=== PATIENT | male | born 1940 | race Caucasian/White ===

== ENCOUNTER 2016-09-06 10:05 | Inpatient (IN) ==
[2016-09-06] MEDS ORDERED: Ipratropium/Albuterol Neb 3 ML IH ONE (10:08)
[2016-09-06] MEDS ORDERED: 0.9 % Sodium Chloride 1,000 ML IVC ONE (10:11)
[2016-09-06] MEDS ORDERED: methylPREDNISolone 125 MG/2 ML VIAL IVP ONE (10:11)
--- NOTE | 2016-09-06 10:14 | Emergency Department Note ---
Disposition Clinical Impression: COPD exacerbation Anemia Qualifiers: Anemia type: unspecified type Qualified Code(s): D64.9 - Anemia, unspecified Disposition: Admitted As Inpatient Condition: Fair Referrals: NO,PCP [Primary Care Provider] - Forms: ED Satisfaction Letter SOB HPI - General Chief Complaint: ED Shortness of Breath/Dyspnea Stated Complaint: CHITO N/V/D Time Seen by Provider: 09/06/16 10:08 Source: patient, family, EMS Mode of arrival: EMS Limitations: no limitations Nursing Notes Reviewed: Yes Vital Signs Reviewed: Yes - History of Present Illness 75-year-old gentleman history of hypertension, COPD stage IV returns for evaluation of generalized weakness, dyspnea, nausea vomiting and diarrhea. Patient states that the nausea vomiting diarrhea occurred yesterday in has since resolved today. Patient's concerns about hydration status. Denies any chest pain or fevers. No cough. Patient states that he recently finished a course of amoxicillin due to his mucus production and is breathing. Patient states that he has been doing any treatments at home. Also is on home oxygen with 2-3 L. Family at bedside states he has been increasingly weak and can only walk 2-3 steps. Also reports some mild abdominal discomfort. States he did have mild heart attacks in the past. Patient is on oral prednisone 5 mg at home. Patient surgical history includes a cholecystectomy as well as an appendectomy. - Related Data Allergies Allergy/AdvReac Type Severity Reaction Status Date / Time Sulfa (Sulfonamide Allergy Anaphylaxis Verified 09/06/16 10:07 Antibiotics) All systems ED: reviewed and negative except as stated. Constitutional: Reports: as per HPI. Denies: fever Eyes: Reports: as per HPI ENT ED: Reports: as per HPI Cardiovascular: Reports: as per HPI. Denies: chest pain Respiratory: Reports: as per HPI, dyspnea Gastrointestinal: Reports: as per HPI, abdominal pain, nausea, vomiting, diarrhea Genitourinary: Reports: as per HPI Musculoskeletal: Reports: as per HPI Integumentary: Reports: as per HPI Neurological: Reports: as per HPI Psychiatric: Reports: as per HPI Endocrine: Reports: as per HPI Hematological/Lymphatic: Reports: as per HPI Physical Exam - General Limitations: no limitations General appearance: alert, in no apparent distress - Head Head exam: atraumatic, normocephalic, normal inspection - Eye Eye exam: Present: normal appearance, PERRL, EOMI - ENT ENT exam: normal exam, normal oropharynx, mucous membranes dry - Neck Neck exam: Present: normal inspection, trachea midline - Chest Chest inspection: Present: normal inspection, symmetric chest wall rise - Respiratory Respiratory exam: Present: accessory muscle use, prolonged expiratory phase, other (Diffuse decreased breath sounds). Absent: respiratory distress - Cardiovascular Cardiovascular exam: Present: normal rhythm, tachycardia. Absent: systolic murmur - Abdominal Exam Abdominal exam: Present: soft, Non-Tender. Absent: tenderness, distention, guarding, rebound, rigidity - Extremities Exam Extremities exam: Present: normal inspection, full ROM. Absent: tenderness, pedal edema - Back Exam Back exam: Present: normal inspection, full ROM. Absent: tenderness - Neurological Exam Neurological exam: Present: alert, oriented X3 - Skin Skin exam: Present: warm, dry, intact, normal color Course Course Narrative: Patient seen and examined upon EMS arrival. Patient does appear tachypneic with accessory muscle use. Patient's on his home oxygen therapy. Patient appears to be in mild discomfort with respiratory work of breathing. Patient will get aerosols, steroids. Patient will also get lab work evaluating cardiac evaluation. - Reevaluation(s) Reevaluation #1: Patient seen and examined. Patient notes breathing has improved. States he does feel slightly better. Discuss plan of care with the patient's family at bedside. Time: 11:12 Reevaluation #2: Explained the patient's care to the family. All questions were answered. Family is agreeable to the plan of care. Time: 11:53 Vital Signs Temperature 99.7 F H 09/06/16 10:08 Pulse Rate 110 09/06/16 10:08 Respiratory Rate 18 09/06/16 10:08 Blood Pressure 112/89 09/06/16 10:08 O2 Sat by Pulse Oximetry 98 09/06/16 10:08 Temperature 99.7 F H 09/06/16 10:08 Pulse Rate 104 09/06/16 11:15 Respiratory Rate 18 09/06/16 11:15 Blood Pressure 121/64 09/06/16 11:15 O2 Sat by Pulse Oximetry 97 09/06/16 11:15 Oxygen Delivery Oxygen Delivery Nasal Cannula Shortness of Breath/Dyspnea - MDM Narrative Medical decision making narrative: 75-year-old male presents for evaluation of nausea and vomiting and diarrhea that started yesterday and has resulted day but increasing weakness and shortness of breath today. Patient does have a consistent history of stage IV COPD. Falls with pulmonology at [facility]. Patient's on oral steroids at home. Patient was recently on amoxicillin for change in mucus production over the past week. Patient did have tachypnea with accessory muscle use and retractions upon exam. Patient was treated with duo nebs as well as IV steroids. Patient's labwork reviewed show some leukocytosis likely secondary to chronic steroid use. Patient's chest x-rays consistent with findings of COPD with minimal left basal opacification related to atelectasis versus airspace disease. Patient has a mild elevation total bili but has had his gallbladder removed. Patient also had his appendix removed. Patient's abdominal exam is benign notes that his pain has improved. Patient does have chronic anemia. Concern of the patient was recently on antibiotics and respiratory status did not improve. Patient will be admitted for respiratory support, scheduled nebs, antibiotics. Patient is not meet sepsis or SIRS criteria, the leukocytosis is likely secondary to deep margination. Patient has a normal lactate. Patient family at bedside are agreeable to plan of care. - Lab Data Lab results reviewed: Yes I reviewed the patient's lab results. Result diagrams: 09/06/16 10:23 09/06/16 10:23 Lab Results 09/06/16 09/06/16 09/06/16 Range/Units 10:23 10:23 10:23 WBC 20.6 H (4.3-11.1) K/mcL RBC 3.99 L (4.19-5.50) M/mcL Hgb 12.7 L (12.9-16.9) g/dL Hct 37.7 (37.5-50.1) % MCV 94.5 (83.0-100.0) fL MCH 31.8 (28.0-33.3) pg MCHC 33.7 (31.6-35.5) g/dL RDW 14.6 H (11.5-14.5) % Plt Count 211 (140-400) K/mcL MPV 8.1 L (9.4-12.4) fL Immature Gran % 5.1 H (0-4) % Seg Neutrophils % 74.8 % Lymphocytes % 5.1 % Monocytes % 14.9 % Eosinophils % 0.0 % Basophils % 0.1 % Neutrophils # 15.4 H (1.6-8.9) K/mcL Lymphocytes # 1.1 (0.6-4.6) K/mcL Monocytes # 3.1 H (0.0-1.3) K/mcL Eosinophils # 0.0 (0.0-0.6) K/mcL Basophils # 0.0 (0.0-0.2) K/mcL Sodium 134 L (136-145) mEq/L Potassium 3.6 (3.5-4.5) mEq/L Chloride 103 (98-109) mEq/L Carbon Dioxide 20 (19-29) mEq/L BUN 35 H (8-26) mg/dL Creatinine 1.25 (0.72-1.25) mg/dL Est GFR ( Amer) > 60 (> 60) Est GFR (Non-Af Amer) 56 L (> 60) BUN/Creatinine Ratio 28 H (6-26) Glucose 134 H (70-99) mg/dL Calculated Osmolality 288 (280-300) Lactic Acid 1.8 (0.5-2.2) mmol/L Calcium 8.9 (8.6-10.8) mg/dL Total Bilirubin 1.6 H (0.2-1.2) mg/dL Direct Bilirubin 0.7 H (0.0-0.5) mg/dL Indirect Bilirubin 0.9 (0.0-1.2) mg/dL AST 21 (5-34) Units/L ALT 31 (0-55) Units/L Alkaline Phosphatase 55 (38-126) Units/L Troponin I (0-0.03) ng/mL B-Natriuretic Peptide (0-100) pg/mL Serum Total Protein 6.8 (6.0-8.3) g/dL Albumin 3.8 (3.5-5.0) g/dL Globulin 3.0 (2.4-3.5) g/dL Albumin/Globulin Ratio 1.3 (1.1-2.2) 09/06/16 09/06/16 Range/Units 10:23 10:23 WBC (4.3-11.1) K/mcL RBC (4.19-5.50) M/mcL Hgb (12.9-16.9) g/dL Hct (37.5-50.1) % MCV (83.0-100.0) fL MCH (28.0-33.3) pg MCHC (31.6-35.5) g/dL RDW (11.5-14.5) % Plt Count (140-400) K/mcL MPV (9.4-12.4) fL Immature Gran % (0-4) % Seg Neutrophils % % Lymphocytes % % Monocytes % % Eosinophils % % Basophils % % Neutrophils # (1.6-8.9) K/mcL Lymphocytes # (0.6-4.6) K/mcL Monocytes # (0.0-1.3) K/mcL Eosinophils # (0.0-0.6) K/mcL Basophils # (0.0-0.2) K/mcL Sodium (136-145) mEq/L Potassium (3.5-4.5) mEq/L Chloride (98-109) mEq/L Carbon Dioxide (19-29) mEq/L BUN (8-26) mg/dL Creatinine (0.72-1.25) mg/dL Est GFR ( Amer) (> 60) Est GFR (Non-Af Amer) (> 60) BUN/Creatinine Ratio (6-26) Glucose (70-99) mg/dL Calculated Osmolality (280-300) Lactic Acid (0.5-2.2) mmol/L Calcium (8.6-10.8) mg/dL Total Bilirubin (0.2-1.2) mg/dL Direct Bilirubin (0.0-0.5) mg/dL Indirect Bilirubin (0.0-1.2) mg/dL AST (5-34) Units/L ALT (0-55) Units/L Alkaline Phosphatase (38-126) Units/L Troponin I 0.02 (0-0.03) ng/mL B-Natriuretic Peptide 74 (0-100) pg/mL Serum Total Protein (6.0-8.3) g/dL Albumin (3.5-5.0) g/dL Globulin (2.4-3.5) g/dL Albumin/Globulin Ratio (1.1-2.2) - Radiology Data Radiology results reviewed: Yes I reviewed the patient's radiology results. Chest X-Ray 09/06/16 10:11 IMPRESSION: 1. There is marked emphysematous/bullous changes more prominent of the upper lungs bilaterally. 2. Prominence of the interstitial markings bilaterally, which may be related to COPD. 3. Minimal left basilar opacification, which may represent atelectasis versus airspace disease. D/ / Selvin Bermudez MD / Selvin Bermudez MD Interpreting Provider: Selvin Bermudez MD - EKG Data EKG attestation: Yes I reviewed and interpreted this EKG. EKG shows normal: Reports: sinus rhythm Rate: Reports: tachycardia Rhythm: Reports: NSR Whitman/QRS: Reports: normal Q waves: Reports: v1 When compared to previous EKG there are: no significant changes Interpretation: Reports: no acute changes S.B.AEduardo - Silvestre Situation: Demographics Background: Presenting Complaint Assessment: Vital Signs, Patient/Family Expectation Recommendation: Barrier(s) to disposition, Recommendation based on pending studies, treatments, or consults S.B.AEduardo Report Given to: Dr. Laura Rivers Repor Time: 11:38
--- NOTE | 2016-09-06 10:28 | Emergency Department Note ---
START Narrative - START START: I examined this patient and my medical decision-making was reviewed with the RIDING INSTRUCTOR/PA/Advanced Practice Nurse/Resident Physician. I agree with the documented findings, disposition and treatment plan as described except to the extent set forth below. ED attending note: Patient seen with emergency medicine resident Dr. Skinner. Please see a copy of his note for details of the H&P, evaluation, management and disposition of this patient. We independently had [id number] contact with the patient Briefly: 75-year-old male by EMS for shortness of breath nausea vomiting and diarrhea. Patient recently on amoxicillin for "mucus production. History of COPD and is on supplemental home O2 2-3 L/m via nasal cannula. Increased weakness with nausea vomiting and diarrhea patient has bilateral expiratory wheezes with intercostal retractions And hypoxic with slight tachycardia. Patient had a triple DuoNeb is getting IV medications of steroids chest x-ray EKG and other screening labs. Admission anticipated. Provided 45 minutes of critical care services for this patient. Disposition pending.
[2016-09-06 10:31] LABS: Basophils % 0.1 %; Hematocrit 37.7 % (37.5-50.1); Hemoglobin 12.7 g/dL (12.9-16.9); Immature Granulocytes % 5.1 % (0-4); Lymphocytes # 1.1 K/mcL (0.6-4.6); Lymphocytes % 5.1 %; Mean Corpuscular HGB Conc 33.7 g/dL (31.6-35.5); Mean Corpuscular Hemoglobin 31.8 pg (28.0-33.3); Mean Corpuscular Volume 94.5 fL (83.0-100.0); Mean Platelet Volume 8.1 fL (9.4-12.4); Monocytes # 3.1 K/mcL (0.0-1.3); Monocytes % 14.9 %; Neutrophils # 15.4 K/mcL (1.6-8.9); Platelet Count 211 K/mcL (140-400); Red Blood Count 3.99 M/mcL (4.19-5.50); Red Cell Distribution Width 14.6 % (11.5-14.5); Segmented Neutrophils % 74.8 %
[2016-09-06 10:44] LABS: Alanine Aminotransferase 31 Units/L (0-55); Albumin 3.8 g/dL (3.5-5.0); Alkaline Phosphatase 55 Units/L (38-126); Aspartate Amino Transferase 21 Units/L (5-34); BUN/Creatinine Ratio 28 (6-26); Bilirubin,Direct 0.7 mg/dL (0.0-0.5); Bilirubin,Indirect 0.9 mg/dL (0.0-1.2); Bilirubin,Total 1.6 mg/dL (0.2-1.2); Blood Urea Nitrogen 35 mg/dL (8-26); Calcium 8.9 mg/dL (8.6-10.8); Carbon Dioxide 20 mEq/L (19-29); Chloride 103 mEq/L (98-109); Glucose 134 mg/dL (70-99); Osmolality,Calculated 288 (280-300); Potassium 3.6 mEq/L (3.5-4.5); Sodium 134 mEq/L (136-145); Total Protein 6.8 g/dL (6.0-8.3); eGFR For African Americans > 60 (> 60); eGFR For Non-African Americans 56 (> 60)
[2016-09-06 10:45] LABS: Albumin/Globulin Ratio 1.3 (1.1-2.2)
[2016-09-06] MEDS ORDERED: levoFLOXacin 500 MG TABLET PO ONE (11:10)
--- NOTE | 2016-09-06 12:27 | Event Note ---
Date of Encounter: 09/06/16 Time of Encounter: 12:24 1. Acute COPD exacerbation secondary to possible early community-acquired pneumonia Chest x-ray shows a small left possible infiltrate in the lower lobe Continue Solu-Medrol, DuoNeb, oxygen therapy and Levaquin iv 2. Chronic respiratory failure 3. Remote history of tobacco use 4. Hypertension, stable may use hydralazine as needed 5.. CAD, continue aspirin 6. Leukocytosis likely due to chronic use of steroids and Commit acquired pneumonia Admit as inpatient, expected stimulant to maintenance. Full code. Time spent on this admission 40 minutes. High risk for respiratory failure H&P to be written by TERRY Longo
[2016-09-06] MEDS ORDERED: Naloxone 0.4 MG/ML INJ IVP PRN (12:53)
[2016-09-06] MEDS ORDERED: Ondansetron 4 MG/2 ML VIAL IVP PRN (12:53)
[2016-09-06] MEDS ORDERED: Nitroglycerin 0.4 MG TAB.SUBL SL PRN (13:02)
--- NOTE | 2016-09-06 13:23 | Internal Med History&Physical ---
<DonatofaithanthonyPhillip chavez - Last Filed: 09/06/16 14:17> Date of Encounter: 09/06/16 Time of Encounter: 12:30 Assessment and Plan (1) SIRS (systemic inflammatory response syndrome) Current visit: Yes Status: Acute Assess: Patient presents with extreme shortness of breath, nausea, vomiting, and diarrhea for the past 48 hours. Patient currently meets SIRS criteria based on his current WBC of 20.6 and HR of 104. Lactic acid is 1.8 on initial labs. Plan: Blood cultures ordered Urine cultures ordered Sputum cultures ordered Stool culture ordered for identification of possible C. diff based on patient's recurrent abx use Lactic acid repeats ordered Repeat H/H ordered Levaquin administered PO in ED. IV levaquin ordered 500 daily starting 09/07/16 IV fluids 100 ml/HR NS ordered Continuous cardiac telemetry ordered Supplemental O2 ordered Monitor patient, vital signs, and SpO2 (2) SOB (shortness of breath) Current visit: Yes Status: Acute Assess: Patient presents with extreme SOB for the past 24 hours. Reports weakness and dizziness based on decreased O2 with exertion. Plan: Supplemental O2 ordered SpO2 monitoring as well as vital signs Continue patient's medications for COPD Steroids administered in ED and will be continued Falls precautions and Up-with Assist ONLY status Bed rest with bathroom privileges (3) Leukocytosis Current visit: Yes Status: Acute Assess: Patient presents with acute leukocytosis, most likely realted to current infection and use of steroids. Plan: Cultures for blood, urine, sputum, and stool ordered Levaquin 500 mg PO administered in ED IV levaquin 500 mg daily ordered beginning 09/07/16 Follow-up labs ordered Qualifiers: Leukocytosis type: unspecified Qualified Code(s): D72.829 - Elevated white blood cell count, unspecified (4) COPD exacerbation Current visit: Yes Status: Acute Assess: Patient presents with COPD exacerbation. Reports weakness and dizziness based on decreased O2 with exertion. 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 Reports weakness and dizziness based on decreased O2 with exertion. Plan: Supplemental O2 ordered SpO2 monitoring as well as vital signs Continue patient's medications for COPD Steroids administered in ED and will be continued Falls precautions and Up-with Assist ONLY status Bed rest with bathroom privileges Monitor patient and vital signs Qualifiers: Respiratory failure complication: unspecified whether with hypoxia or hypercapnia Qualified Code(s): J96.10 - Chronic respiratory failure, unspecified whether with hypoxia or hypercapnia (6) Anemia Current visit: Yes Status: Acute Assess: Patient presents with acute anemia. Current lab values from first draw: RBCs - 3.99, Hgb - 12.7, Hct - 37.7. Plan: Repeat timed H/H ordered Falls precautions ordered due to SOB and generalized weakness Qualifiers: Anemia type: unspecified type Qualified Code(s): D64.9 - Anemia, unspecified (7) Hypertension Current visit: Yes Status: Chronic Assess: Patient presents with history of chronic hypertension. Plan: Continue patient's HTN medications Continue statin Monitor patient and vital signs Bed rest with bathroom privileges/Up with Assist ONLY Qualifiers: Hypertension type: essential hypertension Qualified Code(s): I10 - Essential (primary) hypertension (8) CAD (coronary artery disease) Current visit: Yes Status: Chronic Assess: Patieint presents with history of CAD. EKG dated today (09/06/16) shows sinus tachycardia, most likely related to patient's current infection and extreme SOB. Plan: Continuous cardiac telemetry ordered Supplemental O2 ordered Repeat EKG ordered Continue statin Continue HTN medication Monitor patient and vital signs Qualifiers: Coronary Disease-Associated Artery/Lesion type: unspecified vessel or lesion type [place] vs. transplanted heart: [place] heart Associated angina: angina presence unspecified Qualified Code(s): I25.10 - Atherosclerotic heart disease of [place] coronary artery without angina pectoris (9) DVT prophylaxis Current visit: Yes Status: Acute Assess: Patient to receive DVT prophylaxis due to current bed rest status and infection. Plan: Heparin 5,000 SQ Q12 ordered Internal Medicine - H&P: HPI Chief complaint: SOB/Dyspnea Admitted From: Emergency Dept Plans for Post Hospital Care: Home History of present illness: Mr. Ricardo is a 75 year old male presents from the ED with chief complain of extreme SOB with exertion, nausea, vomiting and diarrhea over the past 48 hours. Patient reports generalized weakness as well. Mr. Ricardo states he has mild discomfort and shows signs of accessory muscle use with breathing and moderate respiratory distress. Patient also appears dehydrated. Mr. Ricardo states he had chest pain 4 days ago and is experiencing transient mild chest pain upon examination. He states he is hypertensive but takes his BP at home which usually ranges from 120-130 over 70's. Patient is currently tachycardic most likely due to infection (WBCs = 20.6 and HR = 104). Patient states that he just finished Amoxicillin due to suspected bronchitis and also states that he has been put on Amoxicillin every month for similar symptoms. 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 Patient currently has cough with excess sputum production which exacerbates his SOB. Patient has history of hypertension, CAD, late-stage COPD (reports exposure to Agent orange), and chronic respiratory failure. Patient currently meets SIRS criteria based on WBCs and HR of 104 bpm. Blood, urine, and sputum cultures ordered. Stool culture ordered due to patient' s chronic use of antibiotics as well. Levaquin 500 PO given in ED with IV levaquin 500 mg daily to begin 09/07/16. Orders placed for continuous cardiac telemetry, continuous SpO2 monitoring, timed H/H based on current anemia, repeat lactic acid (1.8 on first lab draw), follow-up labs. Patient to be monitored closely. Past Med Surg Social Fam HX - Past Medical History Medical history: COPD, hypertension, myocardial infarction, syncope Psychiatric history: anxiety, depression, PTSD - Past Surgical History Surgical History: appendectomy (50 years ago), cholecystectomy (2013), other ( Collapsed right lung in 1979) - Social History Smoking Status: Former smoker Packs per day: 1/2 PPD - quit 25 years ago Smokeless Tobacco Status: No Alcohol use: none Drug use: none Occupational status: retired Current living situation: Home, With Family Activity Level: Uses cane/walker Recent Out of Country Travel Within the Last 8 Weeks: No Exposure or Possible Exposure to Illness During Travel: No - Family History Father Race: Family Member Ethnicity: Non- Living Status: Age at : 70 Cause of : Lung cancer Hx Family Cardiac Disorders: Yes (OR) Hx Family Cancer: Yes (Lung) Mother Race: Family Member Ethnicity: Non- Living Status: Age at : 81 Cause of : Complications from Cystic fibrosis Hx Family Cardiac Disorders: Yes (CHF) Hx Family Respiratory Disorders: Yes (CF) Brother Race: Family Member Ethnicity: Non- Living Status: Still Living Hx Family Endocrine Disorder: Yes (DM) Sister Race: Family Member Ethnicity: Non- Living Status: Age at : 80 Cause of : Lung cancer Hx Family Cancer: Yes (Lung) Internal Medicine - H&P: Meds Acetylcysteine 20% [Mucomyst] 600 mg PO BID 09/06/16 [History] Albuterol Neb [Proventil Neb] 2.5 mg IH Q4HR 09/06/16 [History] Albuterol Sulfate [Proair Hfa] 2 puff IH Q4H PRN 09/06/16 [History] Alendronate Sodium [Fosamax] 70 mg PO QWEEK 09/06/16 [History] Baclofen [Lioresal] 5 mg PO BID 09/06/16 [History] Carvedilol 3.125 mg PO BID 09/06/16 [History] Cholecalciferol (D-3) [Vitamin D] 2,000 unit PO DAILY 09/06/16 [History] Furosemide [Lasix] 10 mg PO DAILY 09/06/16 [History] Losartan Potassium [Cozaar] 100 mg PO DAILY 09/06/16 [History] Magnesium Oxide [Mag-Ox] 400 mg PO DAILY 09/06/16 [History] Mirtazapine [Remeron] 7.5 mg PO HS 09/06/16 [History] Mometasone Furoate [Asmanex] 220 mcg IH BID 09/06/16 [History] Nitroglycerin [Nitrostat] 0.4 mg SL AD PRN 09/06/16 [History] Olodaterol HCl [Striverdi Respimat] 2 puff IH DAILY 09/06/16 [History] Prazosin [Minipress] 1 mg PO HS 09/06/16 [History] Ranitidine HCl [Heartburn Relief] 150 mg PO BID 09/06/16 [History] Simvastatin [Zocor] 20 mg PO DAILY 09/06/16 [History] Venlafaxine HCl [Effexor Xr] 75 mg PO DAILY 09/06/16 [History] Allergies Sulfa (Sulfonamide Antibiotics) Allergy (Verified 09/06/16 10:07) Anaphylaxis All Systems PM: A 10-system review of systems was performed and is negative for pertinent findings except as documented above in the HPI. - Constitutional Constitutional: as per HPI, weakness - EENT Eyes: no change in vision, no discharge, no pain, no photophobia Ears: no ear discharge, no ear pain, no tinnitus Nose, mouth and throat: no dysphagia, no nasal discharge, no neck pain, no sore throat - Breasts Breasts: as per HPI - Cardiovascular Cardiovascular ROS IM: as per HPI, chest pain, dyspnea, no diaphoresis, no lightheadedness, no palpitations, no syncope - Respiratory Respiratory: as per HPI, cough, dyspnea, dyspnea on exertion, excessive phlegm production - Gastrointestinal Gastrointestinal: as per HPI, abdominal pain, diarrhea, nausea, vomiting, no hematemesis, no hematochezia, no melena - Genitourinary Genitourinary ROS male: as per HPI - Musculoskeletal Musculoskeletal ROS IM: no numbness, no tingling - Integumentary Integumentary IM: no rash, no unusual bruising - Neurological Neurological ROS: no confusion, no convulsions, no focal weakness, no numbness, no tingling, no tremor(s) - Psychiatric Psychiatric: as per HPI - Endocrine Endocrine IM: as per HPI - Hematologic/Lymphatic Hematologic/Lymphatic: no easy bruising - Allergic/Immunologic Allergic/Immunologic: as per HPI - Constitutional Vitals: Temp Pulse Resp BP Pulse Ox 99.7 F H 104 18 108/76 97 09/06/16 10:08 09/06/16 11:45 09/06/16 11:45 09/06/16 11:45 09/06/16 11:45 General appearance: Present: cooperative, mild distress, A&O X 3, pleasant, obese, answers questions appropriately - Head Head exam: Present: atraumatic, normocephalic - Eye Eye exam: Present: PERRL, conjuntiva pink, sclera anicteric Pupils: Present: PERRL - ENT ENT exam: Present: normal exam, normal external ear exam - Neck Neck exam general surgery: Present: supple, trachea midline. Absent: lymphadenopathy - Respiratory Respiratory exam: Present: accessory muscle use, CTAB, wheezes (Mild expiratory wheezes in lower lobes bilaterally). Absent: rales, rhonchi - Cardiovascular Cardiovascular exam: Present: RRR, +S1, +S2. Absent: diastolic murmur, gallop, rubs, systolic murmur - GI/Abdominal GI/Abdominal exam: Present: diminished bowel sounds, soft, tenderness - Rectal Rectal exam: Present: deferred - Additional comments: exam deferred. - Extremities Exam Extremities exam: Present: warm, radial pulses palpable and symetrical. Absent : calf tenderness, cyanotic, pedal edema - Back Exam Back exam: Present: normal inspection - Neurological Exam Neurological exam: Present: CN II-XII intact, oriented X3, no focal deficits. Absent: pronater drift, facial droop, speech deficit - Psychiatric Psychiatric exam: Present: anxious - Skin Skin exam: Present: dry, intact Internal Med - H&P Results - Labs CBC & Chem 7: 09/06/16 10:23 09/06/16 10:23 - EKG Data Rate: tachycardia - EKG Data Prior EKG available for review: yes When compared to previous EKG: there is no significant change Interpretation IM: other (Patient's tachycardia most likely due to current infection and extreme SOB) EKG comments: 09/06/16 13:36 EKG dated 08/06/03 shows sinus rhythm within normal limits. EKG dated 08/07/16 shows sinus tachycardia. Abnormal rhythm ECG. - Diagnostic Studies Chest x-ray Additional comments: 1-View CXR of chest dated 09/06/16 shows: The cardiac silhouette appears within normal limits for size. There is prominence of the interstitial markings bilaterally. There appears to be emphysematous/bullous changes of the upper lungs bilaterally. Minimal left basilar opacification is seen. No pleural effusion or pneumothorax. Overall Impression: There is marked emphysematous/bullous changes more prominent of the upper lungs bilaterally. Prominence of the interstitial markings bilaterally, which may be related to COPD. Minimal left basilar opacification, which may represent atelectasis versus airspace disease. <Ko Miranda H - Last Filed: 09/06/16 14:30> Date of Encounter: 09/06/16 Internal Medicine - H&P: HPI History of present illness: Mr. Ricardo is a 75 year old male All Systems PM: A 10-system review of systems was performed and is negative for pertinent findings except as documented above in the HPI. - Constitutional Vitals: Temp Pulse Resp BP Pulse Ox 98.5 F 108 17 103/63 96 05/28/17 13:26 09/06/16 13:26 09/06/16 13:26 09/06/16 13:26 09/06/16 13:26 Internal Med - H&P Results - Labs CBC & Chem 7: 09/06/16 10:23 09/06/16 10:23 - Attending Attestation 1. Acute COPD exacerbation secondary to possible early community-acquired pneumonia Chest x-ray shows a small left possible infiltrate in the lower lobe Continue Solu-Medrol, DuoNeb, oxygen therapy and Levaquin iv 2. Chronic respiratory failure 3. Remote history of tobacco use 4. Hypertension, stable may use hydralazine as needed 5.. CAD, continue aspirin 6. Leukocytosis likely due to chronic use of steroids and Commit acquired pneumonia Admit as inpatient, expected stimulant to maintenance. Full code. Time spent on this admission 40 minutes. High risk for respiratory failure I examined this patient and my medical decision-making was reviewed with the MAP CLERK/PA/Advanced Practice Nurse/Resident Physician. I agree with the documented findings, disposition and treatment plan as described except to the extent set forth below.
[2016-09-06] MEDS ORDERED: Ipratropium/Albuterol Neb 3 ML IH PRN (14:18)
[2016-09-06 15:10] LABS: Bilirubin,Urine Negative (Negative); Blood,Urine Trace (Negative); Clarity,Urine Cloudy (Clear); Color,Urine Yellow (Yellow); Glucose,Urine (UA) Normal (Normal); Ketones,Urine Negative (Negative); Leukocyte Esterase,Urine Negative (Negative); Nitrite,Urine Negative (Negative); PH,Urine 5.5 pH Units (5.0-8.0); Protein,Urine 30 mg/dL (Neg-Trace); Specific Gravity,Urine 1.021 (1.010-1.025); Urobilinogen,Urine Normal (Normal)
[2016-09-06 15:14] LABS: Bacteria,Urine None Seen per hpf (None-Few); Hyaline Casts,Urine None Seen per lpf (None-Few); Squamous Epithelial Cell,Urine Moderate per lpf (None-Few); WBC,Urine 0-3 per hpf (0-3)
[2016-09-06] MEDS ORDERED: Aspirin 325 MG TABLET PO ONE (15:41)
[2016-09-06] MEDS ORDERED: Levofloxacin 250 MG/50 ML 250 MG/50 ML BAG IVPB ONE (15:53)
[2016-09-06] MEDS ORDERED: Acetaminophen 650 MG RECTAL SUPP RC ONE (15:58)
[2016-09-06] MEDS: 0.9 % Sodium Chloride 1,000 ML IVC SCH (16:25)
[2016-09-06] MEDS: Cefepime HCl 1,000 MG in D5% in Water (Mini-Bag+) 100 ML IVPB SCH (16:26)
[2016-09-06] MEDS: MethylPREDNISolone 40 MG/ML VIAL IVP SCH (16:27)
[2016-09-06] MEDS: Albuterol 2.5 MG/3 ML NEBULIZER IH SCH ×2 (16:28→20:19)
[2016-09-06] MEDS: *HR* Heparin 5,000 UNIT/ML VIAL SQ SCH (16:47)
[2016-09-06] MEDS: Baclofen 10 MG TABLET PO SCH (19:54)
[2016-09-06] MEDS: Mirtazapine 15 MG TABLET PO SCH (19:54)
[2016-09-06] MEDS: Beclomethasone 80mcg MDI IH SCH (20:19)
[2016-09-06] MEDS: *HR* Acetylcysteine 20% 600 MG/3 ML ORAL SYRINGE PO SCH (20:47)
[2016-09-07] MEDS: Albuterol 2.5 MG/3 ML NEBULIZER IH SCH ×4 (00:21→11:16)
[2016-09-07 00:43] LABS: Mean Corpuscular HGB Conc 33.5 g/dL (31.6-35.5); Mean Corpuscular Hemoglobin 31.8 pg (28.0-33.3); Mean Corpuscular Volume 94.8 fL (83.0-100.0); Mean Platelet Volume 8.4 fL (9.4-12.4); Platelet Count 167 K/mcL (140-400); Red Blood Count 3.27 M/mcL (4.19-5.50); Red Cell Distribution Width 14.4 % (11.5-14.5)
[2016-09-07 00:50] LABS: INR 1.3; Prothrombin Time 14.2 Seconds (9.4-12.1)
[2016-09-07 00:52] LABS: Activated Partial Thrombo Time 22.7 Seconds (26.0-36.0)
[2016-09-07 00:54] LABS: Hemoglobin 10.4 g/dL (12.9-16.9)
[2016-09-07 00:58] LABS: BUN/Creatinine Ratio 24 (6-26); Blood Urea Nitrogen 28 mg/dL (8-26); Carbon Dioxide 20 mEq/L (19-29); Chloride 109 mEq/L (98-109); Glucose 178 mg/dL (70-99); Osmolality,Calculated 296 (280-300); Potassium 3.7 mEq/L (3.5-4.5); Sodium 138 mEq/L (136-145); eGFR For African Americans > 60 (> 60); eGFR For Non-African Americans > 60 (> 60)
[2016-09-07 00:59] LABS: Alanine Aminotransferase 27 Units/L (0-55); Albumin 3.2 g/dL (3.5-5.0); Albumin/Globulin Ratio 1.2 (1.1-2.2); Alkaline Phosphatase 43 Units/L (38-126); Aspartate Amino Transferase 18 Units/L (5-34); Bilirubin,Total 0.9 mg/dL (0.2-1.2); Calcium 7.9 mg/dL (8.6-10.8); Chol/HDL Ratio 2.1 (0-4.9); Cholesterol 101 mg/dL (< 200); Globulin 2.6 g/dL (2.4-3.5); HDL Cholesterol 47 mg/dL (40-59); LDL Cholesterol,Calculated 36 mg/dL (0-99); Magnesium 2.2 mg/dL (1.6-2.6); Total Protein 5.8 g/dL (6.0-8.3); Triglycerides 91 mg/dL (< 150)
[2016-09-07 01:19] LABS: Lymphocytes # 0.8 K/mcL (0.6-4.6); Monocytes # 0.4 K/mcL (0.0-1.3); Platelet Estimate Normal (Normal)
[2016-09-07] MEDS: MethylPREDNISolone 40 MG/ML VIAL IVP SCH ×4 (01:49→23:59)
[2016-09-07] MEDS: 0.9 % Sodium Chloride 1,000 ML IVC SCH ×3 (04:56→17:54)
[2016-09-07] MEDS: Cefepime HCl 1,000 MG in D5% in Water (Mini-Bag+) 100 ML IVPB SCH (04:56)
[2016-09-07] MEDS: *HR* Heparin 5,000 UNIT/ML VIAL SQ SCH ×2 (06:10→17:54)
[2016-09-07] MEDS ORDERED: (Alendronate Sodium [Fosamax] 70 MG) PO SCH (06:30)
[2016-09-07] MEDS: Beclomethasone 80mcg MDI IH SCH ×2 (07:46→20:02)
[2016-09-07] MEDS: Magnesium Oxide 400 MG TABLET PO SCH (07:51)
[2016-09-07] MEDS: Cholecalciferol (D-3) 1,000 UNIT TABLET PO SCH (07:51)
[2016-09-07] MEDS: Aspirin Enteric Coated 325 MG Tablet PO SCH (07:59)
[2016-09-07] MEDS: Baclofen 10 MG TABLET PO SCH ×2 (07:59→21:06)
[2016-09-07] MEDS: Famotidine 20 MG TABLET PO SCH (07:59)
[2016-09-07] MEDS: Venlafaxine XR (24 HR) 75 MG CAP.ER.24H PO SCH (08:00)
[2016-09-07] MEDS: (Olodaterol Hcl [Striverdi Respimat] 2 PUFF) IH SCH (08:00)
--- NOTE | 2016-09-07 11:35 | Internal Med Progress Note ---
Date of Encounter: 09/07/16 Time of Encounter: 11:33 - Assessment and plan (1) Gastroenteritis Current Visit: Yes Status: Acute Assessment and plan: possibly viral. Improving. Continue IV hydration, supportive care and diet as tolerated. (2) Dehydration Current Visit: Yes Status: Resolved Assessment and plan: improved leukocytosis and serum creatinine; continue IV hydration. (3) COPD exacerbation Current Visit: Yes Status: Acute Assessment and plan: improving. Continue IV steroids, scheduled bronchodilators and supplemental O2; does have home O2; (4) Anemia Current Visit: Yes Status: Chronic Qualifiers: Anemia type: unspecified type Qualified Code(s): D64.9 - Anemia, unspecified (5) Hypertension Current Visit: Yes Status: Chronic Qualifiers: Hypertension type: essential hypertension Qualified Code(s): I10 - Essential (primary) hypertension (6) CAD (coronary artery disease) Current Visit: Yes Status: Chronic Qualifiers: Coronary Disease-Associated Artery/Lesion type: [place] artery [place] vs. transplanted heart: [place] heart Associated angina: without angina Qualified Code(s): I25.10 - Atherosclerotic heart disease of [place] coronary artery without angina pectoris (7) Chronic respiratory failure Current Visit: Yes Status: Chronic Assessment and plan: due to COPD; Qualifiers: Respiratory failure complication: hypoxia Qualified Code(s): J96.11 - Chronic respiratory failure with hypoxia - Subjective Interval history: Improved fever, vomiting and diarrhea. Improving shortness of breath, no cough or chest pain; had fever yesterday evening 101.2; - Constitutional Vitals: Temp Pulse Resp BP Pulse Ox 97.8 F 89 18 105/68 94 09/07/16 11:04 09/07/16 11:04 09/07/16 11:17 09/07/16 11:04 09/07/16 11:17 General appearance: Present: A&O X 3, answers questions appropriately - Respiratory Respiratory exam: Present: decreased breath sounds (B/L decreased air entry). Absent: accessory muscle use, rales, rhonchi, wheezes - Cardiovascular Cardiovascular exam: Present: RRR, +S1, +S2. Absent: diastolic murmur, gallop, rubs, systolic murmur - GI/Abdominal GI/Abdominal exam: Present: normal bowel sounds, soft, no peritoneal signs. Absent: distended, tenderness - Extremities Exam Extremities exam: Present: full ROM, warm, radial pulses palpable and symetrical. Absent: calf tenderness, cyanotic, pedal edema - Neurological Exam Neurological exam: Present: CN II-XII intact, oriented X3, no focal deficits. Absent: pronater drift, facial droop, speech deficit - Skin Skin exam: Present: dry, intact Internal Medicine: Result - Labs CBC & Chem 7: 09/07/16 00:17 09/07/16 00:17 Labs: Short CBC 09/07/16 Range/Units 00:17 WBC 9.2 D (4.3-11.1) K/mcL Hgb 10.4 L D (12.9-16.9) g/dL Hct 31.0 L (37.5-50.1) % Plt Count 167 (140-400) K/mcL Neutrophils # 8.0 (1.6-8.9) K/mcL BMP 09/07/16 00:17 Sodium 138 Potassium 3.7 Chloride 109 Carbon Dioxide 20 BUN 28 H Creatinine 1.15 Glucose 178 H Calcium 7.9 L Cardiac Enzymes 09/06/16 09/06/16 09/07/16 Range/Units 15:53 19:41 00:17 Troponin I 0.03 0.02 0.02 (0-0.03) ng/mL Liver Function 09/07/16 Range/Units 00:17 Total Bilirubin 0.9 (0.2-1.2) mg/dL AST 18 (5-34) Units/L ALT 27 (0-55) Units/L Alkaline Phosphatase 43 (38-126) Units/L Albumin 3.2 L (3.5-5.0) g/dL Urine 09/06/16 Range/Units 14:12 Urine Color Yellow (Yellow) Urine Clarity Cloudy A (Clear) Urine pH 5.5 (5.0-8.0) pH Units Ur Specific [place] 1.021 (1.010-1.025) Urine Protein 30 H (Neg-Trace) mg/dL Urine Glucose (UA) Normal (Normal) mg/dL - ABG Interpretation ABG results: PT/INR, D-dimer PT 14.2 Seconds (9.4-12.1) H 09/07/16 00:17 Consult Discharge Plan - Plan Referrals: NO,PCP [Primary Care Provider] -
[2016-09-07] MEDS ORDERED: Levofloxacin 250 MG/50 ML 250 MG/50 ML BAG IVPB SCH (12:00)
[2016-09-07] MEDS: *HR* Acetylcysteine 20% 600 MG/3 ML ORAL SYRINGE PO SCH ×2 (13:33→21:08)
[2016-09-07] MEDS: Ipratropium/Albuterol Neb 3 ML IH SCH ×3 (15:53→20:02)
[2016-09-07] MEDS: Mirtazapine 15 MG TABLET PO SCH (21:07)
[2016-09-07] MEDS ORDERED: Temazepam 15 MG CAPSULE PO PRN (23:56)
[2016-09-08] MEDS: Ipratropium/Albuterol Neb 3 ML IH SCH ×5 (00:01→15:15)
[2016-09-08] MEDS: 0.9 % Sodium Chloride 1,000 ML IVC SCH (03:50)
[2016-09-08] MEDS: *HR* Heparin 5,000 UNIT/ML VIAL SQ SCH (06:39)
[2016-09-08] MEDS: Beclomethasone 80mcg MDI IH SCH (07:42)
[2016-09-08] MEDS: Magnesium Oxide 400 MG TABLET PO SCH (08:21)
[2016-09-08] MEDS: MethylPREDNISolone 40 MG/ML VIAL IVP SCH (08:21)
[2016-09-08] MEDS: Aspirin Enteric Coated 325 MG Tablet PO SCH (08:21)
[2016-09-08] MEDS: Famotidine 20 MG TABLET PO SCH (08:22)
[2016-09-08] MEDS: Cholecalciferol (D-3) 1,000 UNIT TABLET PO SCH (08:22)
[2016-09-08] MEDS: Baclofen 10 MG TABLET PO SCH (08:22)
[2016-09-08] MEDS: (Olodaterol Hcl [Striverdi Respimat] 2 PUFF) IH SCH (08:23)
[2016-09-08] MEDS: Venlafaxine XR (24 HR) 75 MG CAP.ER.24H PO SCH (08:23)
[2016-09-08 08:26] LABS: BUN/Creatinine Ratio 34 (6-26); Calcium 7.2 mg/dL (8.6-10.8); Carbon Dioxide 18 mEq/L (19-29); Chloride 115 mEq/L (98-109); Glucose 147 mg/dL (70-99); Osmolality,Calculated 302 (280-300); Sodium 140 mEq/L (136-145); eGFR For African Americans > 60 (> 60); eGFR For Non-African Americans 60 (> 60)
[2016-09-08 08:27] LABS: Blood Urea Nitrogen 40 mg/dL (8-26)
[2016-09-08] MEDS: *HR* Acetylcysteine 20% 600 MG/3 ML ORAL SYRINGE PO SCH (08:50)
[2016-09-08 10:58] VITALS: BP 113/69
--- NOTE | 2016-09-08 11:01 | Discharge Summary ---
Date of Encounter: 09/08/16 Time of Encounter: 10:56 - Discharge Diagnosis (1) Gastroenteritis Priority: Primary Status: Acute (2) Dehydration Priority: Primary Status: Resolved (3) COPD exacerbation Priority: Primary Status: Acute (4) Anemia Priority: Secondary Status: Chronic Qualifiers: Anemia type: unspecified type Qualified Code(s): D64.9 - Anemia, unspecified (5) Hypertension Priority: Secondary Status: Chronic Qualifiers: Hypertension type: essential hypertension Qualified Code(s): I10 - Essential (primary) hypertension (6) CAD (coronary artery disease) Priority: Secondary Status: Chronic Qualifiers: Coronary Disease-Associated Artery/Lesion type: [place] artery [place] vs. transplanted heart: [place] heart Associated angina: without angina Qualified Code(s): I25.10 - Atherosclerotic heart disease of [place] coronary artery without angina pectoris (7) Chronic respiratory failure Priority: Secondary Status: Chronic Qualifiers: Respiratory failure complication: hypoxia Qualified Code(s): J96.11 - Chronic respiratory failure with hypoxia - Discharge Medications Prescriptions: Levofloxacin [Levaquin] 750 mg PO Q48H #3 tablet predniSONE [PredniSONE] 60 mg PO DAILY 13 Days Home Medications: Acetylcysteine 20% 600 mg PO BID 09/06/16 [History] Albuterol Neb [Proventil Neb] 2.5 mg IH Q4HR 09/06/16 [History] Albuterol Sulfate [Proair Hfa] 2 puff IH Q4H PRN 09/06/16 [History] Alendronate Sodium [Fosamax] 70 mg PO QWEEK 09/06/16 [History] Baclofen [Lioresal] 5 mg PO BID 09/06/16 [History] Carvedilol 3.125 mg PO BID 09/06/16 [History] Cholecalciferol (D-3) [Vitamin D] 2,000 unit PO DAILY 09/06/16 [History] Furosemide [Lasix] 10 mg PO DAILY 09/06/16 [History] Losartan Potassium [Cozaar] 100 mg PO DAILY 09/06/16 [History] Magnesium Oxide [Mag-Ox] 400 mg PO DAILY 09/06/16 [History] Mirtazapine [Remeron] 7.5 mg PO HS 09/06/16 [History] Mometasone Furoate [Asmanex] 220 mcg IH BID 09/06/16 [History] Nitroglycerin [Nitrostat] 0.4 mg SL AD PRN 09/06/16 [History] Olodaterol HCl [Striverdi Respimat] 2 puff IH DAILY 09/06/16 [History] Prazosin [Minipress] 1 mg PO HS 09/06/16 [History] Ranitidine HCl [Heartburn Relief] 150 mg PO BID 09/06/16 [History] Simvastatin [Zocor] 20 mg PO DAILY 09/06/16 [History] Venlafaxine HCl [Effexor Xr] 75 mg PO DAILY 09/06/16 [History] Levofloxacin [Levaquin] 750 mg PO Q48H #3 tablet 09/08/16 [Rx] predniSONE [PredniSONE] 60 mg PO DAILY 13 Days 09/08/16 [Rx] Allergies/Adverse Reactions: Allergies Sulfa (Sulfonamide Antibiotics) Allergy (Verified 09/06/16 10:07) Anaphylaxis Procedures/tests Complete & Pending: Procedures Performed prior 72 hours Category Date Time Status ECG 12 lead ECG [ECG] Routine Y 09/06/16 14:22 Ordered EV limited echocardiogram Routine Y 09/07/16 16:30 Completed Date of admission: 09/06/16 12:53 Primary care physician: PCP NO Consults: 09/06/16 14:41 Consult to Respiratory Therapy [CONS] Routine Reason for Consult: Patient has late-stage COPD and extreme SOB with exertion. Call Completed: Yes Discharging clinician: Stephanie Burns Anticipated date of discharge: 09/08/16 - Patient Status Disposition: Home, Self-Care Condition: Fair Functional capacity at discharge: independent ambulation Overall status at discharge: patient is progressing back to baseline - Discharge Instructions Instructions: Prednisone (By mouth), Levofloxacin (By mouth) Follow Up With: [facility] [Non-Partnered Physician] - 09/15/16 1:30 pm - Diet and Activity Activity: resume usual activities as tolerated, wear oxygen at all times Diet: low fat, low cholesterol, low salt diet Hospital course: Mr. Ricardo is a 75 year old male with the above medical problems, who was initially admitted with persistent nausea, emesis and diarrhea. He was noted to be severely dehydrated with leukocytosis and mild renal dysfunction at admission. He was started on IV hydration and his symptoms gradually improved. He was also noted to have acute exacerbation of COPD and was started on IV steroids and antibiotics along with scheduled bronchodilators, inhaled steroids/ [place] and supplemental oxygen. His oxygen requirements gradually came down to his baseline and he is doing much better in general. However, patient continues to have decreased air entry bilaterally on auscultation and he is visibly short of breath after speaking long sentences. I have discussed this with patient and his at bedside, who reports that this is patient's baseline and he requests to be discharged home today. Physical and occupational therapy evaluations have been requested, recommend home health services. care services manager has been consulted and a referral for this has been completed. Patient is otherwise medically stable for discharge with oral antibiotics and steroids. He is advised to present to the emergency room in the event of worsening respiratory distress, chest pain, cough and he verbalized understanding. - Time Spent with Patient Total time spent providing and/or coordinating discharge services: Greater than 30 minutes (45 min) - Constitutional Vitals: Temp Pulse Resp BP Pulse Ox 97.9 F 103 22 124/76 90 09/08/16 06:49 09/08/16 06:49 09/08/16 07:43 09/08/16 06:49 09/08/16 07:43 General appearance: Present: A&O X 3, answers questions appropriately - Respiratory Respiratory exam: Present: decreased breath sounds (decreased air entry B/L), CTAB. Absent: accessory muscle use, rales, rhonchi, wheezes - Cardiovascular Cardiovascular exam: Present: RRR, +S1, +S2. Absent: diastolic murmur, gallop, rubs, systolic murmur
[2016-09-08] MEDS ORDERED: Levofloxacin 750 MG/150 ML 750 MG/150 ML BAG IVPB SCH (12:00)
--- NOTE | 2016-09-08 16:14 | Physician Discharge Referral ---
Home Health/Hosp Referral Info Transfer to: Home Health Attending Provider: Stephanie Burns Provider in Charge Post Discharge: PCP - Diagnosis (1) Gastroenteritis Priority: Primary Status: Acute (2) Dehydration Priority: Primary Status: Resolved (3) COPD exacerbation Priority: Primary Status: Acute (4) Anemia Priority: Secondary Status: Chronic (5) Hypertension Priority: Secondary Status: Chronic (6) CAD (coronary artery disease) Priority: Secondary Status: Chronic (7) Chronic respiratory failure Priority: Secondary Status: Chronic - Respiratory Orders Oxygen / L per min (2-3L/min via [place]) Smoking Cessation: Smoking cessation has been advised. For more information, call the [place] Tobacco Quit Line at 6-605-APZG-NOW. - Diet/Nutrition Diet/Nutrition Orders: No Added Salt (SOL), Cardiac - Activity Activity Orders: Ambulate - Services Needed Following services are medically necessary services: Nursing, Physical Therapy, Occupational Therapy - Transfer Medications Prescriptions: Levofloxacin [Levaquin] 750 mg PO Q48H #3 tablet predniSONE [PredniSONE] 60 mg PO DAILY 13 Days Home Medications: Acetylcysteine 20% 600 mg PO BID 09/06/16 [History] Albuterol Neb [Proventil Neb] 2.5 mg IH Q4HR 09/06/16 [History] Albuterol Sulfate [Proair Hfa] 2 puff IH Q4H PRN 09/06/16 [History] Alendronate Sodium [Fosamax] 70 mg PO QWEEK 09/06/16 [History] Baclofen [Lioresal] 5 mg PO BID 09/06/16 [History] Carvedilol 3.125 mg PO BID 09/06/16 [History] Cholecalciferol (D-3) [Vitamin D] 2,000 unit PO DAILY 09/06/16 [History] Furosemide [Lasix] 10 mg PO DAILY 09/06/16 [History] Losartan Potassium [Cozaar] 100 mg PO DAILY 09/06/16 [History] Magnesium Oxide [Mag-Ox] 400 mg PO DAILY 09/06/16 [History] Mirtazapine [Remeron] 7.5 mg PO HS 09/06/16 [History] Mometasone Furoate [Asmanex] 220 mcg IH BID 09/06/16 [History] Nitroglycerin [Nitrostat] 0.4 mg SL AD PRN 09/06/16 [History] Olodaterol HCl [Striverdi Respimat] 2 puff IH DAILY 09/06/16 [History] Prazosin [Minipress] 1 mg PO HS 09/06/16 [History] Ranitidine HCl [Heartburn Relief] 150 mg PO BID 09/06/16 [History] Simvastatin [Zocor] 20 mg PO DAILY 09/06/16 [History] Venlafaxine HCl [Effexor Xr] 75 mg PO DAILY 09/06/16 [History] Levofloxacin [Levaquin] 750 mg PO Q48H #3 tablet 09/08/16 [Rx] predniSONE [PredniSONE] 60 mg PO DAILY 13 Days 09/08/16 [Rx] Allergies/Adverse Reactions: Allergies Sulfa (Sulfonamide Antibiotics) Allergy (Verified 09/06/16 10:07) Anaphylaxis Certification: Further, I certify that my clinical findings support that this patient is homebound (i.e. absences from home require considerable and taxing effort and are for medical reasons or buddhism services or infrequently or short duration when for other reasons) because: Homebound Reason: Leaving home requires considerable and taxing effort due to condition, Severity of cardiac or pulmonary status limits activity tolerance Attestation: My signature below is to certify that this patient is under my care and that I, or nurse practitioner, or a physician's health information assistant working with me, has a face-to -face encounter with this patient.
--- NOTE | 2016-09-08 17:46 | Electrocardiograph Report ---
[place] [address] Test Date: 2016-09-06 Pat Name: Sp Ricardo Department: 104 Room: 3B23 Gender: M Line Worker: KIM : 1940 Requested By: Dio Skinner Order Number: [id number] Reading MD: Cris Delong Measurements Intervals [place] Rate: 109 P: 74 [place]: 149 QRS: 66 QRSD: 97 T: 75 QT: 305 QTc: 369 Interpretive Statements SINUS TACHYCARDIA ABNORMAL RHYTHM ECG Electronically Signed On 09-08-2016 17:44:29 EDT by Cris Delong
--- NOTE | 2016-09-08 17:52 | Electrocardiograph Report ---
[address] [place] [address] Test Date: 2016-09-06 Pat Name: Sp Ricardo Department: 113 Room: 3B23 Gender: Page Designer: : 1940 Requested By: Phillip Longo Order Number: [id number] Reading MD: Cris Delong Measurements Intervals [place] Rate: 95 P: 79 [place]: 138 QRS: 67 QRSD: 101 T: 77 QT: 339 QTc: 392 Interpretive Statements SINUS RHYTHM POSSIBLE ANTERIOR MYOCARDIAL INFARCTION, OF INDETERMINATE AGE Electronically Signed On 09-08-2016 17:50:57 EDT by Cris Delong
== END 2016-09-08 14:50 | disposition home or self-care (01) | DRG 191 ==
LOC: 3BNU 10:05 → EMEROO 10:05 → 3BNU 12:35 → SUATTDRO 12:53
PROVIDERS: ADMIT Internal Medicine; ATTEND Internal Medicine

== ENCOUNTER 2021-05-05 11:59 | Inpatient (IN) ==
[2021-05-05] MEDS ORDERED: Ipratropium/Albuterol Neb 3 ML IH ONE (12:23)
[2021-05-05] MEDS ORDERED: Azithromycin 500 MG in 0.9 % Sodium Chloride 250 ML IVPB ONE (12:25)
[2021-05-05] MEDS ORDERED: cefTRIAXone 1,000 MG in Water for inj. (sterile) 10 ML IVP ONE (12:25)
[2021-05-05 13:18] LABS: VBG HCO3 22 mEq/L (21-27); VBG PCO2 34 mmHg (41-51); VBG PH 7.41 pH Units (7.32-7.42); VBG PO2 111 mmHg (25-50)
[2021-05-05] MEDS ORDERED: Albuterol 2.5 MG/3 ML NEBULIZER IH ONE (13:45)
[2021-05-05 13:46] LABS: Hematocrit 26.5 % (37.5-50.1); Mean Corpuscular HGB Conc 30.2 g/dL (31.6-35.5); Mean Corpuscular Hemoglobin 31.5 pg (28.0-33.3); Mean Corpuscular Volume 104.3 fL (83.0-100.0); Mean Platelet Volume 8.1 fL (9.4-12.4); Platelet Count 228 K/mcL (140-400); Red Blood Count 2.54 M/mcL (4.19-5.50); Red Cell Distribution Width 15.5 % (11.5-14.5); White Blood Count 12.5 K/mcL (4.3-11.1)
[2021-05-05 14:00] LABS: INR 1.2; Prothrombin Time 13.5 Seconds (9.4-12.1)
[2021-05-05 14:08] LABS: Adenovirus Not Detected (Not Detect); Bordetella Pertussis Not Detected (Not Detect); Chlamydophila pneumoniae Not Detected (Not Detect); Coronavirus 229E Not Detected (Not Detect); Coronavirus HKU1 Not Detected (Not Detect); Coronavirus NL63 Not Detected (Not Detect); Coronavirus OC43 Not Detected (Not Detect); Human Metapneumovirus Not Detected (Not Detect); Human Rhinovirus/Enterovirus Not Detected (Not Detect); Influenza A Subtype 2009 H1 Not Detected (Not Detect); Influenza B Not Detected (Not Detect); Mycoplasma pneumoniae Not Detected (Not Detect); Parainfluenza Virus 1 Not Detected (Not Detect); Parainfluenza Virus 2 Not Detected (Not Detect); Parainfluenza Virus 3 Not Detected (Not Detect); Parainfluenza Virus 4 Not Detected (Not Detect); Respiratory Syncytial Virus Not Detected (Not Detect); SARS-CoV-2 Not Detected (Not Detect)
[2021-05-05 14:09] LABS: Alanine Aminotransferase 14 Units/L (7-52); Albumin/Globulin Ratio 1.5 (1.1-2.2); Alkaline Phosphatase 106 Units/L (34-104); Aspartate Amino Transferase 12 Units/L (13-39); BUN/Creatinine Ratio 40 (6-26); Bilirubin,Direct 0.3 mg/dL (0.0-0.2); Bilirubin,Indirect 0.6 mg/dL (0.0-1.0); Bilirubin,Total 0.9 mg/dL (0.3-1.0); Blood Urea Nitrogen 49 mg/dL (8-23); Calcium 9.4 mg/dL (8.6-10.3); Carbon Dioxide 24 mEq/L (23-29); Chloride 110 mEq/L (98-107); Globulin 2.7 g/dL (2.4-3.5); Glucose 137 mg/dL (70-105); Magnesium 2.2 mg/dL (1.6-2.6); Osmolality,Calculated 307 (280-300); Sodium 141 mEq/L (136-145); Total Protein 6.7 g/dL (6.4-8.9); Troponin I < 0.03 ng/mL (< 0.04); eGFR For African Americans > 60 (> 60); eGFR For Non-African Americans 57 (> 60)
[2021-05-05 14:10] LABS: Lymphocytes # 0.5 K/mcL (0.6-4.6); Monocytes # 0.5 K/mcL (0.0-1.3); Neutrophils # 11.5 K/mcL (1.6-8.9)
[2021-05-05 14:11] LABS: Hypersegmented Neutrophils Present (Not Present); Platelet Estimate Normal (Normal)
[2021-05-05] MEDS ORDERED: Nitroglycerin 0.4 MG TAB.SUBL SL PRN (17:59)
[2021-05-05] MEDS ORDERED: Ondansetron 4 MG/2 ML VIAL IVP PRN (18:01)
[2021-05-05] MEDS ORDERED: Melatonin 3 MG TABLET PO PRN (18:01)
[2021-05-05] MEDS ORDERED: Naloxone 0.4 MG/ML INJ IVP PRN (18:01)
[2021-05-05] MEDS ORDERED: Acetaminophen 325 MG TABLET PO PRN (18:01)
[2021-05-05] MEDS: 0.9 % Sodium Chloride 1,000 ML IVC SCH (18:55)
[2021-05-05] MEDS: Ipratropium/Albuterol Neb 3 ML IH SCH ×2 (19:41→23:10)
[2021-05-05] MEDS: Budesonide/Formoterol 160/4.5 1 PUFF INH IH SCH (19:44)
[2021-05-05] MEDS ORDERED: NON-FORMULARY MEDICATION 1 EACH EACH (Lactose-Reduced Food [Ensure Liquid] 237 ML Liquid) PO SCH (21:00)
[2021-05-05] MEDS: Gabapentin 100 MG CAPSULE PO SCH (21:19)
[2021-05-05] MEDS: GuaiFENesin Liq 200 MG/10 ML UDC PO SCH (21:19)
[2021-05-05] MEDS: Mirtazapine 15 MG TABLET PO SCH (21:20)
[2021-05-05] MEDS: Baclofen 10 MG TABLET PO SCH (21:20)
[2021-05-05] MEDS: Lactobacillus 1 EACH CAP.SPRINK PO SCH (21:20)
[2021-05-05] MEDS: Famotidine 20 MG TABLET PO SCH (21:20)
[2021-05-05] MEDS ORDERED: Budesonide/Formoterol 160/4.5 1 PUFF INH IH SCH (22:00)
[2021-05-05] MEDS: *HR* Acetylcysteine 20% 600 MG/3 ML ORAL SYRINGE PO SCH (23:00)
[2021-05-06] MEDS: methylPREDNISolone 125 MG/2 ML VIAL IVP SCH ×4 (00:57→16:33)
[2021-05-06 01:48] LABS: Basophils % 0.1 %; Hematocrit 25.1 % (37.5-50.1); Immature Granulocytes % 7.1 % (0-4); Lymphocytes # 0.6 K/mcL (0.6-4.6); Lymphocytes % 8.3 %; Mean Corpuscular HGB Conc 31.9 g/dL (31.6-35.5); Mean Corpuscular Hemoglobin 32.5 pg (28.0-33.3); Mean Platelet Volume 8.2 fL (9.4-12.4); Monocytes # 0.5 K/mcL (0.0-1.3); Monocytes % 6.9 %; Neutrophils # 5.6 K/mcL (1.6-8.9); Platelet Count 213 K/mcL (140-400); Red Blood Count 2.46 M/mcL (4.19-5.50); Red Cell Distribution Width 15.5 % (11.5-14.5); Segmented Neutrophils % 77.6 %; White Blood Count 7.2 K/mcL (4.3-11.1)
[2021-05-06 02:10] LABS: Alanine Aminotransferase 14 Units/L (7-52); Albumin 3.8 g/dL (3.5-5.7); Albumin/Globulin Ratio 1.4 (1.1-2.2); Alkaline Phosphatase 104 Units/L (34-104); Aspartate Amino Transferase 12 Units/L (13-39); BUN/Creatinine Ratio 44 (6-26); Bilirubin,Total 0.8 mg/dL (0.3-1.0); Blood Urea Nitrogen 48 mg/dL (8-23); Calcium 9.1 mg/dL (8.6-10.3); Carbon Dioxide 20 mEq/L (23-29); Chloride 112 mEq/L (98-107); Globulin 2.7 g/dL (2.4-3.5); Glucose 160 mg/dL (70-105); Magnesium 2.2 mg/dL (1.6-2.6); Osmolality,Calculated 310 (280-300); Potassium 3.9 mEq/L (3.5-5.1); Sodium 142 mEq/L (136-145); Total Protein 6.5 g/dL (6.4-8.9); eGFR For African Americans > 60 (> 60); eGFR For Non-African Americans > 60 (> 60)
[2021-05-06] MEDS ORDERED: ALPRAZolam 0.5 MG TABLET PO ONE (02:42)
[2021-05-06] MEDS: Ipratropium/Albuterol Neb 3 ML IH SCH ×6 (03:08→23:23)
[2021-05-06 03:10] LABS: Platelet Estimate Normal (Normal)
[2021-05-06] MEDS: *HR* Enoxaparin 40 MG/0.4 ML SYRINGE SQ SCH (05:11)
[2021-05-06] MEDS: Budesonide/Formoterol 160/4.5 1 PUFF INH IH SCH ×2 (07:26→20:56)
[2021-05-06] MEDS: GuaiFENesin Liq 200 MG/10 ML UDC PO SCH ×3 (08:31→20:56)
[2021-05-06] MEDS: carvediloL 6.25 MG TABLET PO SCH ×2 (08:31→16:33)
[2021-05-06] MEDS: Cholecalciferol (D-3) 1,000 UNIT (25MCG) TABLET PO SCH (08:31)
[2021-05-06] MEDS: Gabapentin 100 MG CAPSULE PO SCH ×2 (08:32→20:55)
[2021-05-06] MEDS: Lactobacillus 1 EACH CAP.SPRINK PO SCH ×3 (08:32→20:54)
[2021-05-06] MEDS: Famotidine 20 MG TABLET PO SCH (08:32)
[2021-05-06] MEDS: Aspirin Enteric Coated 81 MG Tablet PO SCH (08:32)
[2021-05-06] MEDS: Baclofen 10 MG TABLET PO SCH ×3 (08:32→20:55)
[2021-05-06] MEDS: Fluticasone Propionate Nasal 50 MCG/SPRAY BOTTLE NS SCH (08:33)
[2021-05-06] MEDS: Furosemide 40 MG/4 ML VIAL IVP SCH (08:39)
[2021-05-06] MEDS ORDERED: CEFTRIAXONE IN IS-OSM DEXTROSE 1 GM/50 ML PIGGYBACK IVPB SCH (09:00)
[2021-05-06] MEDS ORDERED: Furosemide 20 MG TABLET PO SCH (09:00)
[2021-05-06] MEDS ORDERED: cefTRIAXone 2,000 MG in 0.9 % Sodium Chloride Mini Bag 100 ML IVPB SCH (09:00)
[2021-05-06] MEDS: *HR* Acetylcysteine 20% 600 MG/3 ML ORAL SYRINGE PO SCH ×2 (09:09→20:55)
[2021-05-06] MEDS ORDERED: 0.9 % Sodium Chloride 1,000 ML ONE (09:14)
[2021-05-06 09:25] LABS: % Iron Saturation 15 % (20-55); Iron 45 mcg/dL (65-175); Transferrin 220 mg/dL (203-362)
[2021-05-06 09:43] LABS: Ferritin 689 ng/mL (20-250)
[2021-05-06 09:53] LABS: Folate > 22.3 ng/mL (3.0-16.0); Vitamin B12 611 pg/mL (250-1100)
[2021-05-06] MEDS ORDERED: Tiotropium 10 INH DOSE IH SCH (10:00)
[2021-05-06] MEDS: 0.9 % Sodium Chloride 1,000 ML IVC SCH (11:47)
[2021-05-06 14:12] LABS: Bilirubin,Urine Negative (Negative); Blood,Urine Negative (Negative); Clarity,Urine Clear (Clear); Color,Urine Colorless (Yellow); Glucose,Urine (UA) Normal (Normal); Ketones,Urine Negative (Negative); Leukocyte Esterase,Urine Negative (Negative); Nitrite,Urine Negative (Negative); PH,Urine 5.5 pH Units (5.0-8.0); Protein,Urine Negative (Neg-Trace); Specific Gravity,Urine 1.011 (1.010-1.025); Urobilinogen,Urine Normal (Normal)
[2021-05-06 14:18] LABS: VBG HCO3 23 mEq/L (21-27); VBG PCO2 37 mmHg (41-51); VBG PO2 133 mmHg (25-50)
[2021-05-06] MEDS ORDERED: Azithromycin 500 MG in 0.9 % Sodium Chloride 250 ML IVPB SCH (18:00)
[2021-05-06] MEDS: Mirtazapine 15 MG TABLET PO SCH (20:54)
[2021-05-07] MEDS: methylPREDNISolone 125 MG/2 ML VIAL IVP SCH ×4 (00:17→20:26)
[2021-05-07] MEDS: Ipratropium/Albuterol Neb 3 ML IH SCH ×6 (03:59→23:20)
[2021-05-07] MEDS: *HR* Enoxaparin 40 MG/0.4 ML SYRINGE SQ SCH (05:32)
[2021-05-07] MEDS: Budesonide/Formoterol 160/4.5 1 PUFF INH IH SCH ×2 (07:41→20:13)
[2021-05-07] MEDS: Lactobacillus 1 EACH CAP.SPRINK PO SCH ×3 (08:29→20:28)
[2021-05-07] MEDS: Baclofen 10 MG TABLET PO SCH ×3 (08:30→20:29)
[2021-05-07] MEDS: Furosemide 40 MG/4 ML VIAL IVP SCH (08:34)
[2021-05-07] MEDS: Cholecalciferol (D-3) 1,000 UNIT (25MCG) TABLET PO SCH (08:36)
[2021-05-07] MEDS: Famotidine 20 MG TABLET PO SCH (08:37)
[2021-05-07] MEDS: Gabapentin 100 MG CAPSULE PO SCH ×2 (08:37→20:29)
[2021-05-07] MEDS: Aspirin Enteric Coated 81 MG Tablet PO SCH (08:38)
[2021-05-07] MEDS: carvediloL 6.25 MG TABLET PO SCH ×2 (08:38→16:20)
[2021-05-07] MEDS: GuaiFENesin Liq 200 MG/10 ML UDC PO SCH ×3 (08:39→20:27)
[2021-05-07] MEDS: *HR* Acetylcysteine 20% 600 MG/3 ML ORAL SYRINGE PO SCH ×2 (08:39→22:33)
[2021-05-07] MEDS: Fluticasone Propionate Nasal 50 MCG/SPRAY BOTTLE NS SCH (08:40)
[2021-05-07 09:24] LABS: BUN/Creatinine Ratio 48 (6-26); Blood Urea Nitrogen 64 mg/dL (8-23); Calcium 8.7 mg/dL (8.6-10.3); Carbon Dioxide 21 mEq/L (23-29); Chloride 114 mEq/L (98-107); Glucose 175 mg/dL (70-105); Osmolality,Calculated 317 (280-300); Potassium 3.8 mEq/L (3.5-5.1); Sodium 142 mEq/L (136-145); eGFR For African Americans > 60 (> 60); eGFR For Non-African Americans 52 (> 60)
[2021-05-07] MEDS: Piperacillin/Tazobactam 3.375 GM in 0.9 % Sodium Chloride Mini Bag 100 ML IVPB SCH ×2 (10:08→16:20)
[2021-05-07 13:27] LABS: Hematocrit 26.6 % (37.5-50.1); Hemoglobin 8.1 g/dL (12.9-16.9); Mean Corpuscular HGB Conc 30.5 g/dL (31.6-35.5); Mean Corpuscular Hemoglobin 31.6 pg (28.0-33.3); Mean Corpuscular Volume 103.9 fL (83.0-100.0); Mean Platelet Volume 8.5 fL (9.4-12.4); Platelet Count 317 K/mcL (140-400); Red Blood Count 2.56 M/mcL (4.19-5.50); Red Cell Distribution Width 15.8 % (11.5-14.5)
[2021-05-07 13:38] LABS: White Blood Count 17.7 K/mcL (4.3-11.1)
[2021-05-07 14:19] LABS: Lymphocytes # 1.2 K/mcL (0.6-4.6); Monocytes # 0.5 K/mcL (0.0-1.3); Neutrophils # 15.9 K/mcL (1.6-8.9)
[2021-05-07 14:23] LABS: Basophilic Stippling 1+ (Not Present); Macrocytosis Present (Not Present); Platelet Estimate Normal (Normal)
[2021-05-07 14:51] LABS: Polychromasia 1+ (Not Present)
[2021-05-07] MEDS: Furosemide 20 MG TABLET PO SCH (17:06)
[2021-05-07] MEDS ORDERED: Azithromycin 250 MG TABLET PO SCH (18:00)
[2021-05-07] MEDS: Mirtazapine 15 MG TABLET PO SCH (20:28)
[2021-05-08] MEDS: Piperacillin/Tazobactam 3.375 GM in 0.9 % Sodium Chloride Mini Bag 100 ML IVPB SCH ×3 (02:32→16:55)
[2021-05-08] MEDS: Ipratropium/Albuterol Neb 3 ML IH SCH ×5 (03:50→20:10)
[2021-05-08] MEDS: methylPREDNISolone 125 MG/2 ML VIAL IVP SCH ×3 (05:46→20:24)
[2021-05-08] MEDS: Furosemide 20 MG TABLET PO SCH ×2 (05:47→16:56)
[2021-05-08] MEDS: *HR* Enoxaparin 40 MG/0.4 ML SYRINGE SQ SCH (05:47)
[2021-05-08] MEDS: Lactobacillus 1 EACH CAP.SPRINK PO SCH ×3 (08:33→20:25)
[2021-05-08] MEDS: Gabapentin 100 MG CAPSULE PO SCH ×2 (08:33→20:25)
[2021-05-08] MEDS: Aspirin Enteric Coated 81 MG Tablet PO SCH (08:34)
[2021-05-08] MEDS: *HR* Acetylcysteine 20% 600 MG/3 ML ORAL SYRINGE PO SCH ×2 (08:34→20:23)
[2021-05-08] MEDS: carvediloL 6.25 MG TABLET PO SCH ×2 (08:34→16:57)
[2021-05-08] MEDS: Baclofen 10 MG TABLET PO SCH ×3 (08:34→20:24)
[2021-05-08] MEDS: Cholecalciferol (D-3) 1,000 UNIT (25MCG) TABLET PO SCH (08:34)
[2021-05-08] MEDS: Famotidine 20 MG TABLET PO SCH (08:34)
[2021-05-08] MEDS: GuaiFENesin Liq 200 MG/10 ML UDC PO SCH ×3 (08:53→20:24)
[2021-05-08] MEDS: Fluticasone Propionate Nasal 50 MCG/SPRAY BOTTLE NS SCH (08:53)
[2021-05-08] MEDS: Budesonide/Formoterol 160/4.5 1 PUFF INH IH SCH ×2 (11:17→20:10)
[2021-05-08] MEDS: Mirtazapine 15 MG TABLET PO SCH (20:25)
[2021-05-09] MEDS: Ipratropium/Albuterol Neb 3 ML IH SCH ×7 (00:04→23:47)
[2021-05-09] MEDS: Piperacillin/Tazobactam 3.375 GM in 0.9 % Sodium Chloride Mini Bag 100 ML IVPB SCH ×4 (00:35→23:09)
[2021-05-09] MEDS: methylPREDNISolone 125 MG/2 ML VIAL IVP SCH ×3 (05:01→20:52)
[2021-05-09] MEDS: Furosemide 20 MG TABLET PO SCH (05:01)
[2021-05-09] MEDS: *HR* Enoxaparin 40 MG/0.4 ML SYRINGE SQ SCH (05:01)
[2021-05-09] MEDS: Budesonide/Formoterol 160/4.5 1 PUFF INH IH SCH ×2 (07:43→19:45)
[2021-05-09] MEDS: Baclofen 10 MG TABLET PO SCH ×3 (08:44→20:54)
[2021-05-09] MEDS: Cholecalciferol (D-3) 1,000 UNIT (25MCG) TABLET PO SCH (08:44)
[2021-05-09] MEDS: Lactobacillus 1 EACH CAP.SPRINK PO SCH ×3 (08:44→20:53)
[2021-05-09] MEDS: Aspirin Enteric Coated 81 MG Tablet PO SCH (08:44)
[2021-05-09] MEDS: *HR* Acetylcysteine 20% 600 MG/3 ML ORAL SYRINGE PO SCH ×2 (08:45→23:09)
[2021-05-09] MEDS: GuaiFENesin Liq 200 MG/10 ML UDC PO SCH ×3 (08:45→20:53)
[2021-05-09] MEDS: carvediloL 6.25 MG TABLET PO SCH ×2 (08:45→16:43)
[2021-05-09] MEDS: Gabapentin 100 MG CAPSULE PO SCH ×2 (08:45→20:53)
[2021-05-09] MEDS: Famotidine 20 MG TABLET PO SCH (08:45)
[2021-05-09] MEDS: Fluticasone Propionate Nasal 50 MCG/SPRAY BOTTLE NS SCH (09:03)
[2021-05-09 10:24] LABS: Basophils % 0.1 %; Hematocrit 25.9 % (37.5-50.1); Hemoglobin 7.9 g/dL (12.9-16.9); Immature Granulocytes % 4.3 % (0-4); Lymphocytes # 0.7 K/mcL (0.6-4.6); Lymphocytes % 3.9 %; Mean Corpuscular HGB Conc 30.5 g/dL (31.6-35.5); Mean Corpuscular Hemoglobin 31.6 pg (28.0-33.3); Mean Corpuscular Volume 103.6 fL (83.0-100.0); Mean Platelet Volume 8.1 fL (9.4-12.4); Monocytes # 1.1 K/mcL (0.0-1.3); Monocytes % 6.4 %; Platelet Count 300 K/mcL (140-400); Red Cell Distribution Width 15.5 % (11.5-14.5); Segmented Neutrophils % 85.3 %; White Blood Count 16.9 K/mcL (4.3-11.1)
[2021-05-09 10:33] LABS: Neutrophils # 14.4 K/mcL (1.6-8.9)
[2021-05-09 11:45] LABS: Platelet Estimate Normal (Normal)
[2021-05-09 11:46] LABS: Macrocytosis Present (Not Present)
[2021-05-09 12:03] LABS: Potassium 4.2 mEq/L (3.5-5.1)
[2021-05-09] MEDS: polyethylene glycoL 3350 17 GM POWD.PACK PO SCH (16:44)
[2021-05-09] MEDS: Morphine Sulfate Oral CONC 10 MG/0.5 ML ORAL.SYG SL PRN (20:50)
[2021-05-09] MEDS: Mirtazapine 15 MG TABLET PO SCH (20:54)
[2021-05-10] MEDS: Morphine Sulfate Oral CONC 10 MG/0.5 ML ORAL.SYG SL PRN ×3 (02:24→14:05)
[2021-05-10] MEDS: methylPREDNISolone 125 MG/2 ML VIAL IVP SCH ×2 (02:24→18:56)
[2021-05-10] MEDS: Ipratropium/Albuterol Neb 3 ML IH SCH ×5 (03:57→19:54)
[2021-05-10] MEDS: *HR* Enoxaparin 40 MG/0.4 ML SYRINGE SQ SCH (05:51)
[2021-05-10] MEDS: Fluticasone Propionate Nasal 50 MCG/SPRAY BOTTLE NS SCH (07:30)
[2021-05-10] MEDS: polyethylene glycoL 3350 17 GM POWD.PACK PO SCH (07:30)
[2021-05-10] MEDS: Budesonide/Formoterol 160/4.5 1 PUFF INH IH SCH ×2 (07:50→19:55)
[2021-05-10] MEDS: Baclofen 10 MG TABLET PO SCH ×3 (08:18→20:21)
[2021-05-10] MEDS: Famotidine 20 MG TABLET PO SCH (08:18)
[2021-05-10] MEDS: Cholecalciferol (D-3) 1,000 UNIT (25MCG) TABLET PO SCH (08:18)
[2021-05-10] MEDS: Lactobacillus 1 EACH CAP.SPRINK PO SCH ×3 (08:19→20:21)
[2021-05-10] MEDS: carvediloL 6.25 MG TABLET PO SCH ×2 (08:19→17:43)
[2021-05-10] MEDS: Aspirin Enteric Coated 81 MG Tablet PO SCH (08:20)
[2021-05-10] MEDS: Gabapentin 100 MG CAPSULE PO SCH ×2 (08:20→20:21)
[2021-05-10] MEDS: GuaiFENesin Liq 200 MG/10 ML UDC PO SCH ×3 (08:20→20:22)
[2021-05-10] MEDS: *HR* Acetylcysteine 20% 600 MG/3 ML ORAL SYRINGE PO SCH ×2 (08:21→20:19)
[2021-05-10] MEDS: Piperacillin/Tazobactam 3.375 GM in 0.9 % Sodium Chloride Mini Bag 100 ML IVPB SCH ×3 (08:41→20:20)
[2021-05-10] MEDS ORDERED: Furosemide 20 MG TABLET PO SCH (09:00)
[2021-05-10] MEDS: MethylPREDNISolone 40 MG/ML VIAL IVP SCH ×2 (14:12→20:21)
[2021-05-10] MEDS: amLODIPine 5 MG TABLET PO SCH (14:32)
[2021-05-10] MEDS: Mirtazapine 15 MG TABLET PO SCH (20:21)
[2021-05-11] MEDS: Morphine Sulfate Oral CONC 10 MG/0.5 ML ORAL.SYG SL PRN (00:57)
[2021-05-11 03:27] LABS: Hematocrit 27.4 % (37.5-50.1); Hemoglobin 8.3 g/dL (12.9-16.9); Mean Corpuscular HGB Conc 30.3 g/dL (31.6-35.5); Mean Corpuscular Hemoglobin 31.1 pg (28.0-33.3); Mean Corpuscular Volume 102.6 fL (83.0-100.0); Mean Platelet Volume 8.9 fL (9.4-12.4); Platelet Count 234 K/mcL (140-400); Red Blood Count 2.67 M/mcL (4.19-5.50); Red Cell Distribution Width 15.4 % (11.5-14.5); White Blood Count 14.1 K/mcL (4.3-11.1)
[2021-05-11 03:36] LABS: Potassium 4.4 mEq/L (3.5-5.1)
[2021-05-11 04:19] LABS: ABG Base Excess 1 mEq/L (-2 to 3); ABG HCO3 26 mEq/L (21-27); ABG Oxygen Saturation 98 % (95-98); ABG PCO2 44 mmHg (35-45); ABG PH 7.38 pH Units (7.32-7.45); ABG PO2 109 mmHg (85-104); ABG TCO2 28 mEq/L (20-26)
[2021-05-11] MEDS: Ipratropium/Albuterol Neb 3 ML IH SCH ×7 (04:35→23:59)
[2021-05-11] MEDS: Piperacillin/Tazobactam 3.375 GM in 0.9 % Sodium Chloride Mini Bag 100 ML IVPB SCH ×3 (06:05→19:56)
[2021-05-11] MEDS: *HR* Enoxaparin 40 MG/0.4 ML SYRINGE SQ SCH (06:05)
[2021-05-11] MEDS: MethylPREDNISolone 40 MG/ML VIAL IVP SCH ×3 (06:05→18:09)
[2021-05-11 06:11] LABS: Lymphocytes # 1.6 K/mcL (0.6-4.6); Monocytes # 0.4 K/mcL (0.0-1.3); Neutrophils # 12.1 K/mcL (1.6-8.9); Platelet Estimate Normal (Normal); Reactive Lymphocytes Present (Not Present)
[2021-05-11] MEDS: Budesonide/Formoterol 160/4.5 1 PUFF INH IH SCH ×2 (07:57→20:58)
[2021-05-11] MEDS: Famotidine 20 MG TABLET PO SCH (09:30)
[2021-05-11] MEDS: GuaiFENesin Liq 200 MG/10 ML UDC PO SCH ×3 (09:30→19:54)
[2021-05-11] MEDS: amLODIPine 5 MG TABLET PO SCH (09:30)
[2021-05-11] MEDS: carvediloL 6.25 MG TABLET PO SCH ×2 (09:30→16:06)
[2021-05-11] MEDS: Cholecalciferol (D-3) 1,000 UNIT (25MCG) TABLET PO SCH (09:30)
[2021-05-11] MEDS: Aspirin Enteric Coated 81 MG Tablet PO SCH (09:30)
[2021-05-11] MEDS: Gabapentin 100 MG CAPSULE PO SCH ×2 (09:30→19:54)
[2021-05-11] MEDS: Baclofen 10 MG TABLET PO SCH ×3 (09:30→19:55)
[2021-05-11] MEDS: Lactobacillus 1 EACH CAP.SPRINK PO SCH ×3 (09:30→19:55)
[2021-05-11] MEDS: *HR* Acetylcysteine 20% 600 MG/3 ML ORAL SYRINGE PO SCH ×2 (09:31→19:55)
[2021-05-11] MEDS: polyethylene glycoL 3350 17 GM POWD.PACK PO SCH (09:31)
[2021-05-11] MEDS: Fluticasone Propionate Nasal 50 MCG/SPRAY BOTTLE NS SCH (09:31)
[2021-05-11] MEDS ORDERED: 0.9 % Sodium Chloride 1,000 ML IVC SCH (13:45)
[2021-05-11 16:21] LABS: Bilirubin,Urine Negative (Negative); Blood,Urine Negative (Negative); Clarity,Urine Clear (Clear); Color,Urine Light-Yellow (Yellow); Glucose,Urine (UA) Normal (Normal); Ketones,Urine Negative (Negative); Leukocyte Esterase,Urine Negative (Negative); Nitrite,Urine Negative (Negative); PH,Urine 5.5 pH Units (5.0-8.0); Protein,Urine Trace mg/dL (Neg-Trace); Specific Gravity,Urine 1.027 (1.010-1.025); Urobilinogen,Urine Normal (Normal)
[2021-05-11 16:31] LABS: Sodium, Urine 49.3 mEq/L
[2021-05-11] MEDS: Mirtazapine 15 MG TABLET PO SCH (19:54)
[2021-05-12] MEDS: Ipratropium/Albuterol Neb 3 ML IH SCH ×3 (04:29→10:58)
[2021-05-12] MEDS: *HR* Enoxaparin 40 MG/0.4 ML SYRINGE SQ SCH (04:59)
[2021-05-12] MEDS: MethylPREDNISolone 40 MG/ML VIAL IVP SCH (04:59)
[2021-05-12] MEDS: Piperacillin/Tazobactam 3.375 GM in 0.9 % Sodium Chloride Mini Bag 100 ML IVPB SCH ×2 (05:01→12:45)
[2021-05-12] MEDS: Budesonide/Formoterol 160/4.5 1 PUFF INH IH SCH (07:33)
[2021-05-12] MEDS: Lactobacillus 1 EACH CAP.SPRINK PO SCH (08:31)
[2021-05-12] MEDS: Famotidine 20 MG TABLET PO SCH (08:32)
[2021-05-12] MEDS: Baclofen 10 MG TABLET PO SCH (08:32)
[2021-05-12] MEDS: Aspirin Enteric Coated 81 MG Tablet PO SCH (08:32)
[2021-05-12] MEDS: carvediloL 6.25 MG TABLET PO SCH (08:32)
[2021-05-12] MEDS: Gabapentin 100 MG CAPSULE PO SCH (08:32)
[2021-05-12] MEDS: Cholecalciferol (D-3) 1,000 UNIT (25MCG) TABLET PO SCH (08:32)
[2021-05-12] MEDS: Fluticasone Propionate Nasal 50 MCG/SPRAY BOTTLE NS SCH (08:33)
[2021-05-12] MEDS: polyethylene glycoL 3350 17 GM POWD.PACK PO SCH (08:33)
[2021-05-12] MEDS: *HR* Acetylcysteine 20% 600 MG/3 ML ORAL SYRINGE PO SCH (08:33)
[2021-05-12] MEDS: GuaiFENesin Liq 200 MG/10 ML UDC PO SCH (08:33)
[2021-05-12] MEDS ORDERED: amLODIPine 5 MG TABLET PO SCH (09:00)
[2021-05-12] MEDS ORDERED: *HR* LORazepam Oral Conc 2 MG/ML PO PRN (10:40)
[2021-05-12 11:41] VITALS: BP 147/79; PULSE 81; O2SAT 99
[2021-05-12 11:43] VITALS: TEMP 99.2
[2021-05-12] MEDS ORDERED: *HR* Heparin 5,000 UNIT/ML VIAL IVP PRN (13:33)
[2021-05-12] MEDS ORDERED: PrismaSATE BGK 4/2.5 5,000 ML CRRT SCH ×2 (13:45)
== END 2021-05-12 13:58 | disposition hospice, home (50) | DRG 871 ==
LOC: 2ANU 11:59 → EMEROOARM 11:59 → 2ANU 17:50 → SUATTDRO 18:01
PROVIDERS: ADMIT Internal Medicine; ATTEND General Practice